=== PATIENT | female | born 1950 | race Caucasian/White ===

== ENCOUNTER 2018-04-17 15:54 | Observation (INO) ==
[2018-04-17] MEDS ORDERED: Acetaminophen 325 MG Tablet PO ONE (16:24)
[2018-04-17] MEDS ORDERED: Morphine Inj 4 MG/ML Vial IV.PUSH ONE (16:26)
--- NOTE | 2018-04-17 16:31 | ED ---
HPI General Chief complaint: Extremity Problem,Nontraumatic Stated complaint: Left leg redness/pain/swelling Time Seen by Provider: 04/17/18 16:18 Source: patient Mode of arrival: wheelchair Limitations: no limitations History of Present Illness HPI narrative: 68-year-old female here for evaluation of worsening left lower extremity pain, swelling, redness. The patient was seen in the emergency department on 04/15/18 for similar symptoms, stating that her symptoms started that day, had a left lower extremity venous duplex that was negative for DVT, discharged home with Keflex which she has been compliant with. Patient reports increasing pain and swelling with increasing area of erythema. She is unsure if she has had a fever. Pain is severe, constant, throbbing, worse with movements and palpation. She is unable to ambulate because of the pain. She denies trauma. Related Data Home Medications Medication Instructions Recorded Confirmed furosemide [Lasix] 20 mg PO DAILY 04/15/18 04/17/18 gabapentin 300 mg PO HS 04/15/18 04/17/18 ropinirole 2 mg PO HS 04/15/18 04/17/18 spironolactone 50 mg PO DAILY 04/15/18 04/17/18 Previous Rx's Medication Instructions Recorded cephalexin [Keflex] 500 mg PO TID 10 Days #30 cap 04/15/18 Allergies Allergy/AdvReac Type Severity Reaction Status Date / Time No Known Allergies Allergy Verified 04/17/18 16:07 Review of Systems ROS: all other systems reviewed are negative PMFSH Social History Social History Substance History: No History of Abuse Second Hand Smoke Exposure: Yes Smoking Status: Current every day smoker Tobacco Type: Cigarettes How Often Do You Have a Drink Containing Alcohol: 4 or more times a week Recent Travel in [facility] within the Last 8 Weeks: No Recent Out of Country Travel within the Last 8 Weeks: No Immunization History Tetanus Immunization: <5 Years Exam Narrative Exam Narrative: GENERAL: Well-developed, well-nourished, comfortable, no apparent distress. SKIN: Left foot, ankle, and distal leg with moderate edema with overlying warmth and erythema and diffuse tenderness, no crepitus, no red streaks, no fluctuance or induration. There is one tiny scab to the posterior aspect of the distal leg, otherwise no open wounds or ulcerations. HEAD: Atraumatic. Normocephalic. EYES: Pupils equal and round. No scleral icterus. No injection or drainage. ENT: Mucous membranes pink and moist. NECK: Trachea midline. No JVD. CARDIOVASCULAR: Regular rate and rhythm. Bilateral dorsalis pedis pulses are brisk and equal. RESPIRATORY: No accessory muscle use. Clear to auscultation. Breath sounds equal bilaterally. GASTROINTESTINAL: Abdomen soft, non-tender, nondistended. MUSCULOSKELETAL: Skin exam as above. Otherwise no obvious deformities. NEUROLOGICAL: Awake and alert. No obvious cranial nerve deficits. Motor grossly within normal limits. Normal speech. PSYCHIATRIC: Appropriate mood and affect; insight and judgment normal. Course Initial Documented Vital Signs Temperature 99.0 F 04/17/18 16:02 Pulse Rate 94 H 04/17/18 16:02 Respiratory Rate 20 04/17/18 16:02 Blood Pressure 152/79 H 04/17/18 16:02 Pulse Oximetry 98 04/17/18 16:02 Last Documented Vital Signs Temperature 98.4 F 04/17/18 20:00 Pulse Rate 64 04/17/18 20:00 Respiratory Rate 16 04/17/18 20:00 Blood Pressure 105/56 L 04/17/18 20:00 Pulse Oximetry 98 04/17/18 20:00 Medical Decision Making [facility] Narrative Medical decision making narrative: Initial vital signs show heart rate 94 with a low-grade temp of 99 F. CBC is remarkable for elevated MCV of 105. CMP is remarkable for sodium of 130. Left ankle x-ray shows moderate soft tissue swelling without bony abnormality. The patient has significant edema with cellulitis to the left distal leg/ankle/ foot. The left lower extremity is neurovascularly intact, and all compartments are supple. This has not responded to outpatient antibiotic therapy with Keflex , and the pain is so severe today that the patient is unable to ambulate because of this. She was given a dose of 1 g of IV vancomycin here in the emergency department and will be admitted for further treatment and evaluation of left lower extremity cellulitis with failed outpatient therapy. Patient has a slightly elevated MCV with a sodium of 1 takes a couple of alcoholic beverages daily, and states that she had a couple of drinks a day to try to help with her pain. She was made aware of all findings and is amenable with plan for admission. Case discussed with hospitalist Dr. José who will admit the patient to his service. Medical Screen Exam Complete: Yes Emergency Medical Condition: Yes Differential Diagnosis Differential Diagnosis: Cellulitis, myositis, osteomyelitis, gout, necrotizing fasciitis less likely Lab Data Result diagrams: 04/17/18 16:30 04/17/18 16:30 Lab Results 04/17/18 04/17/18 04/17/18 Range/Units 16:30 16:30 16:30 CBC w Diff Auto diff final WBC 8.1 (4.0-11.0) th/mm3 RBC 4.03 (4.00-5.30) mil/mm3 Hgb 14.7 (11.6-15.3) gm/dL Hct 42.3 (35.0-46.0) % MCV 105.0 H (80.0-100.0) fL MCH 36.6 H (27.0-34.0) pg MCHC 34.8 (32.0-36.0) % RDW 13.6 (11.6-17.2) % Plt Count 317 (150-450) th/mm3 MPV 7.4 (7.0-11.0) fL Neut % (Auto) 65.4 (16.0-70.0) % Lymph % (Auto) 26.6 (9.0-44.0) % [place] % (Auto) 5.5 (0.0-8.0) % Eos % (Auto) 1.7 (0.0-4.0) % Baso % (Auto) 0.8 (0.0-2.0) % Neut # (Auto) 5.3 (1.8-7.7) th/mm3 Lymph # (Auto) 2.2 (1.0-4.8) th/mm3 [place] # (Auto) 0.4 (0.0-0.9) th/mm3 Eos # (Auto) 0.1 (0.0-0.4) th/mm3 Baso # (Auto) 0.1 (0.0-0.2) th/mm3 WBC Differential . Differential Comment . PT 9.7 L (9.8-11.6) sec INR 1.0 Ratio APTT 27.4 (23.4-31.7) sec Sodium 130 L (136-145) meq/L Potassium 3.8 (3.5-5.1) meq/L Chloride 98 (98-107) meq/L Carbon Dioxide 25.4 (21.0-32.0) meq/L Anion Gap 7 (5-15) meq/L BUN 9 (7-18) mg/dL Creatinine 0.80 (0.50-1.00) mg/dL Estimated GFR 72 L (>89) mL/min Random Glucose 90 (74-106) mg/dL Lactic Acid (0.4-2.0) mmol/L Uric Acid (2.6-6.0) mg/dl Calcium 8.4 L (8.5-10.1) mg/dL Magnesium 2.0 (1.5-2.5) mg/dL Total Bilirubin 0.4 (0.2-1.0) mg/dL AST 18 (15-37) U/L ALT 19 (10-53) U/L Alkaline Phosphatase 82 (45-117) U/L Total Protein 7.1 (6.4-8.2) g/dL Albumin 3.2 L (3.4-5.0) g/dL 04/17/18 04/17/18 Range/Units 16:30 16:35 CBC w Diff WBC (4.0-11.0) th/mm3 RBC (4.00-5.30) mil/mm3 Hgb (11.6-15.3) gm/dL Hct (35.0-46.0) % MCV (80.0-100.0) fL MCH (27.0-34.0) pg MCHC (32.0-36.0) % RDW (11.6-17.2) % Plt Count (150-450) th/mm3 MPV (7.0-11.0) fL Neut % (Auto) (16.0-70.0) % Lymph % (Auto) (9.0-44.0) % [place] % (Auto) (0.0-8.0) % Eos % (Auto) (0.0-4.0) % Baso % (Auto) (0.0-2.0) % Neut # (Auto) (1.8-7.7) th/mm3 Lymph # (Auto) (1.0-4.8) th/mm3 [place] # (Auto) (0.0-0.9) th/mm3 Eos # (Auto) (0.0-0.4) th/mm3 Baso # (Auto) (0.0-0.2) th/mm3 WBC Differential Differential Comment PT (9.8-11.6) sec INR Ratio APTT (23.4-31.7) sec Sodium (136-145) meq/L Potassium (3.5-5.1) meq/L Chloride (98-107) meq/L Carbon Dioxide (21.0-32.0) meq/L Anion Gap (5-15) meq/L BUN (7-18) mg/dL Creatinine (0.50-1.00) mg/dL Estimated GFR (>89) mL/min Random Glucose (74-106) mg/dL Lactic Acid 1.4 (0.4-2.0) mmol/L Uric Acid 4.6 (2.6-6.0) mg/dl Calcium (8.5-10.1) mg/dL Magnesium (1.5-2.5) mg/dL Total Bilirubin (0.2-1.0) mg/dL AST (15-37) U/L ALT (10-53) U/L Alkaline Phosphatase (45-117) U/L Total Protein (6.4-8.2) g/dL Albumin (3.4-5.0) g/dL Imaging Data Radiologist's impression: Ankle X-Ray 04/17/18 16:24 CONCLUSION: 1. No acute fracture or dislocation. 2. Diffuse soft tissue swelling of the left ankle. Discharge Plan Discharge Disposition Patient Disposition: 30 Still Patient Discharge Condition Condition: Stable Discharge Details Diagnosis: Cellulitis of left leg Physicians Team ED Provider: Alec Durham Primary Care Provider: UNKNOWN, Attending Provider: Aleja José Discharge Interventions Interventions: ED Discharge Assessment Last Done: 04/17/18 19:20 Status ED Status: Left Department Discharge Information Discharge Date/Time: 04/17/18 19:55
[2018-04-17 16:40] LABS: Baso # (Auto) 0.1 th/mm3 (0.0-0.2); Baso % (Auto) 0.8 % (0.0-2.0); Eos # (Auto) 0.1 th/mm3 (0.0-0.4); Eos % (Auto) 1.7 % (0.0-4.0); Hematocrit 42.3 % (35.0-46.0); Hemoglobin 14.7 gm/dL (11.6-15.3); Lymph # (Auto) 2.2 th/mm3 (1.0-4.8); Lymph % (Auto) 26.6 % (9.0-44.0); Mean Corpuscular HGB Conc 34.8 % (32.0-36.0); Mean Corpuscular Hemoglobin 36.6 pg (27.0-34.0); Mean Platelet Volume 7.4 fL (7.0-11.0); Mono # (Auto) 0.4 th/mm3 (0.0-0.9); Mono % (Auto) 5.5 % (0.0-8.0); Neut # (Auto) 5.3 th/mm3 (1.8-7.7); Neut % (Auto) 65.4 % (16.0-70.0); Platelet Count 317 th/mm3 (150-450); Red Blood Count 4.03 mil/mm3 (4.00-5.30); Red Cell Distribution Width 13.6 % (11.6-17.2); White Blood Count 8.1 th/mm3 (4.0-11.0)
[2018-04-17 16:49] LABS: Chloride 98 meq/L (98-107); Potassium 3.8 meq/L (3.5-5.1); Sodium 130 meq/L (136-145)
[2018-04-17 16:52] LABS: Calcium 8.4 mg/dL (8.5-10.1)
[2018-04-17 16:53] LABS: Albumin 3.2 g/dL (3.4-5.0); Anion Gap 7 meq/L (5-15); Carbon Dioxide 25.4 meq/L (21.0-32.0); Glucose,Random 90 mg/dL (74-106)
[2018-04-17 16:55] LABS: Activated Partial Thrombo Time 27.4 sec (23.4-31.7); Blood Urea Nitrogen 9 mg/dL (7-18); Prothrombin Time 9.7 sec (9.8-11.6)
[2018-04-17 16:56] LABS: Alanine Aminotransferase 19 U/L (10-53); Aspartate Aminotransferase 18 U/L (15-37)
[2018-04-17 16:58] LABS: Total Protein 7.1 g/dL (6.4-8.2)
[2018-04-17 16:59] LABS: Alkaline Phosphatase 82 U/L (45-117); Glomerular Filtration Rate 72 mL/min (>89)
[2018-04-17] MEDS ORDERED: Vancomycin Inj 1,000 MG in Sodium Chlor 0.9% Inj 250 ML IV.SIG SCH (17:00)
--- NOTE | 2018-04-17 17:00 | XR ---
EXAM DATE: 04/17/2018 4:51 PM EST AGE/SEX: 68 years / Female INDICATIONS: Pain and inflammation to left ankle. No known injury. CLINICAL DATA: This is the patient's initial encounter. Patient reports that signs and symptoms have been present for 3 days and indicates a pain score of 8/10. MEDICAL/SURGICAL HISTORY: None. None. COMPARISON: No prior exams available for comparison. FINDINGS: Bony structures are intact and in normal alignment. Joints are intact without dislocation or signifi cant arthropathy. Osseous density is normal. Diffuse soft tissue swelling of the left ankle is noted . No radiopaque foreign bodies seen. CONCLUSION: 1. No acute fracture or dislocation. 2. Diffuse soft tissue swelling of the left ankle. Electronically signed by: Wilman Phillips MD 04/17/2018 4:58 PM EST
[2018-04-17] MEDS ORDERED: Acetaminophen 325 MG Tablet PO PRN (17:33)
[2018-04-17] MEDS ORDERED: Morphine Sulfate Inj 2 MG/ML Vial IV.PUSH PRN (17:34)
[2018-04-17] MEDS: Sod Chloride 0.9% Inj 1,000 ML IV.CONT SCH (18:51)
[2018-04-17] MEDS: Ampicillin/Sulbactam Inj 1,500 MG in Sodium Chloride 0.9% Inj 100 ML IV.SIG SCH ×2 (18:51→23:02)
[2018-04-17] MEDS ORDERED: Ibuprofen 600 MG Tablet PO PRN (19:35)
--- NOTE | 2018-04-17 19:58 | P.HPIM ---
History of Present Illness Primary Care Physician: UNKNOWN History of Present Illness: Patient is a 61-year-old with a history of restless leg syndrome, peripheral neuropathy, and extensive tobacco smoking and etoh history. She says that she drinks 3-5 beers per day that has been on going for nearly 10 yrs. On Monday she noticed that she had some redness and swelling of her medial left ankle. The pain continuously got worse until she was unable to ambulate on it. She denies any fevers or chills. No trauma to the ankle, or recent insect bites. She came into the ed a few days ago and was given keflex without any improvement of her symptoms. An u/s of the lower ext during that time was negative for DVT. She denies any abd pain, no diarrhea, no sob, no chest pain. PMH Restless leg syndrome, peripheral neuropathy Surgical hx none Fam hx non contributory social hx pt admits to 3-5 beers per day for nearly 10 yrs, smoked tobacco 1ppd for nearly 50 yrs. Denies hx of Drug use. Inpatient Certification: I certify that the inpatient services were ordered in accordance with Medicare regulations governing the order. This includes certification that hospital inpatient services are reasonable and necessary and in the case of services not specified as inpatient-only under 42 CFR 419.22(n), that they are appropriately provided as inpatient services in accordance to with the 2-midnight benchmark under 43 CFR 412.3(e) Review of Systems All other systems reviewed negative except as stated in HPI PMFSH - History History Provided By: Patient - Medical History Medical History: Medical History (Last Reviewed 04/17/18 @ 16:12 by Laura Benites RN) CHF (congestive heart failure) H/O: hysterectomy Restless leg syndrome - Tobacco History Second Hand Smoke Exposure: Yes Tobacco Use In Past 30 Days: Yes Smoking Status: Current every day smoker Tobacco Type: Cigarettes - Alcohol History How Often Do You Have a Drink Containing Alcohol: 2 to 4 times a month - Substance Use History Substance History: No History of Abuse - Travel History Recent Travel in the [place] Within the Last 8 Weeks: No Recent Travel Out of the Country Within the Last 8 Weeks: No - Immunization History Tetanus Immunization: <5 Years Medications and Allergies Active Medications: Active Medications Gabapentin (Neurontin) 300 mg PO HS MISHA Vancomycin HCl 1,000 mg/ (Sodium Chloride) 250 mls @ 250 mls/hr IV.SIG [facility] Last Infusion: 04/17/18 18:45 Dose: Infused Vancomycin HCl 1,000 mg/ (Sodium Chloride) 250 mls @ 250 mls/hr IV.SIG Q24H [facility] Ampicillin Sodium/Sulbactam Sodium 1,500 mg/ Sodium Chloride 100 mls @ 200 mls/ hr IV.SIG Q6H [facility] Last Infusion: 04/17/18 19:20 Dose: Infused Sodium Chloride (Ns Inj) 1,000 mls @ 125 mls/hr IV.CONT .Q8H [facility] Last Admin: 04/17/18 18:51 Dose: 125 mls/hr Ibuprofen (Motrin) 600 mg PO Q8H PRN PRN Reason: PAIN 1-10 AND/OR FEVER >101F Ropinirole HCl (Requip) 2 mg PO [facility] Allergies Allergy/AdvReac Type Severity Reaction Status Date / Time No Known Allergies Allergy Verified 04/17/18 16:07 Home Medications Medication Instructions Recorded Confirmed Type furosemide [Lasix] 20 mg PO DAILY 04/15/18 04/17/18 History gabapentin 300 mg PO HS 04/15/18 04/17/18 History ropinirole 2 mg PO HS 04/15/18 04/17/18 History spironolactone 50 mg PO DAILY 04/15/18 04/17/18 History Exam Vital signs: Vital Signs 04/17/18 16:02 04/17/18 17:30 04/17/18 19:12 Temperature 99.0 F Pulse Rate 94 H 71 66 Respiratory Rate 20 18 16 Blood Pressure 152/79 H 123/56 L 112/56 L Pulse Oximetry 98 97 98 Intake & Output 04/17/18 04/17/18 04/18/18 06:59 18:59 06:59 Intake Total 250 / 250 100 / 100 Balance 250 / 250 100 / 100 Weight 63 kg Intake: IV 250 / 250 100 / 100 Unasyn Inj 1,500 MG In NS Inj 100 / 100 100 ML @ 200 mls/hr IV.SIG Q6H [facility] Rx#:[id number] Vancomycin Inj 1,000 MG In NS 250 / 250 Inj 250 ML @ 250 mls/hr IV.SIG [facility] Rx#:[id number] Narrative: General patient complains of pain of the left ankle HEENT extraocular movements are intact, clear oropharyngeal mucosa Cardiovascular S1-S2 audible Respiratory clear to auscultation bilaterally Abdomen soft, nontender, nondistended, normal bowel sounds Extremities Left ankle is erythematous, swollen, limited range of motion of the left ankle Neuro cranial nerves II through XII intact Results - Labs CBC & Chem 7: 04/17/18 16:30 04/17/18 16:30 Labs: Short CBC 04/17/18 Range/Units 16:30 WBC 8.1 (4.0-11.0) th/mm3 Hgb 14.7 (11.6-15.3) gm/dL Hct 42.3 (35.0-46.0) % Plt Count 317 (150-450) th/mm3 BMP 04/17/18 16:30 Sodium 130 L Potassium 3.8 Chloride 98 Carbon Dioxide 25.4 BUN 9 Creatinine 0.80 Calcium 8.4 L Liver Function 04/17/18 Range/Units 16:30 Total Bilirubin 0.4 (0.2-1.0) mg/dL AST 18 (15-37) U/L ALT 19 (10-53) U/L Alkaline Phosphatase 82 (45-117) U/L Albumin 3.2 L (3.4-5.0) g/dL - Imaging Impressions Ankle X-Ray 04/17/18 16:24 CONCLUSION: 1. No acute fracture or dislocation. 2. Diffuse soft tissue swelling of the left ankle. Caprini VTE Risk Assessment Caprini VTE Risk Assessment: Moderate/High Risk (score >= 2) Caprini Risk Assessment Model: Point Value = 1 Point Value = 2 Point Value = 3 Point Value = 5 Age 41-60 Minor surgery BMI > 25 kg/m2 Swollen legs Varicose veins or History of unexplained or recurrent spontaneous Oral contraceptives or hormone replacement Sepsis (< 1 month) Serious lung disease, including pneumonia (< 1 month) Abnormal pulmonary function Acute myocardial infarction Congestive heart failure (< 1 month) History of inflammatory bowel disease Medical patient at bed rest Age 61-74 Arthroscopic surgery Major open surgery (> 45 min) Laparoscopic surgery (> 45 min) Malignancy Confined to bed (> 72 hours) Immobilizing plaster cast Central venous access Age >= 75 History of VTE Family history of VTE Factor V Leiden Prothrombin [id number] Lupus anticoagulant Anticardiolipin antibodies Elevated serum homocysteine Heparin-induced thrombocytopenia Other congenital or acquired thrombophilia Stroke (< 1 month) Elective arthroplasty Hip, pelvis, or leg fracture Acute spinal cord injury (< 1 month) Prophylaxis Regimen: Total Risk Factor Score Risk Level Prophylaxis Regimen 0-1 Low Early ambulation 2 Moderate Order ONE of the following: *Sequential Compression Device (SCD) *Heparin 5000 units SQ BID 3-4 Higher Order ONE of the following medications: *Heparin 5000 units SQ TID *Enoxaparin/Lovenox 40 mg SQ daily (WT < 150 kg, CrCl > 30 mL/min) *Enoxaparin/Lovenox 30 mg SQ daily (WT < 150 kg, CrCl > 10-29 mL/min) *Enoxaparin/Lovenox 30 mg SQ BID (WT < 150 kg, CrCl > 30 mL/min) AND/OR *Sequential Compression Device (SCD) 5 or more Highest Order ONE of the following medications: *Heparin 5000 units SQ TID (Preferred with Epidurals) *Enoxaparin/Lovenox 40 mg SQ daily (WT < 150 kg, CrCl > 30 mL/min) *Enoxaparin/Lovenox 30 mg SQ daily (WT < 150 kg, CrCl > 10-29 mL/min) *Enoxaparin/Lovenox 30 mg SQ BID (WT < 150 kg, CrCl > 30 mL/min) AND *Sequential Compression Device (SCD) Assessment and Plan - Plan Patient is a 61-year-old with a history of restless leg syndrome, peripheral neuropathy, and extensive tobacco smoking and etoh history. She says that she drinks 3-5 beers per day that has been on going for nearly 10 yrs. On Monday she noticed that she had some redness and swelling of her medial left ankle. The pain continuously got worse until she was unable to ambulate on it. She denies any fevers or chills. No trauma to the ankle, or recent insect bites. She came into the ed a few days ago and was given keflex without any improvement of her symptoms. An u/s of the lower ext during that time was negative for DVT. 1. Left lower extremity cellulitis concern for Gout Patient is afebrile, wbc count is normal Patient recently had an u/s of the LLE which was neg for DVT. Has an extensive hx of alcohol use, denies diet heavy with red meat. Uric acid level ordered. Xray shows soft tissue swelling Ortho consulted for evaluation and possible arthrocentesis. Started on IV vancomycin and unasyn. Blood cultures ordered. Ibuprofen for pain control. Patient began to have nausea and vomiting with morphine. 2. Restless leg syndrome Continue Ropinirole 3. Peripheral neuropathy Continue gabapentin 4. Tobacco/Etoh abuse Patient was advised to quit smoking and stop drinking. Observe for signs of withdrawal. Patient says she wants to stop smoking. Nicotine patch. Lovenox for dvt prophylaxis.
[2018-04-17] MEDS: Ibuprofen 600 MG Tablet PO ONE ×2 (21:22→21:37)
[2018-04-17] MEDS: Gabapentin 300 MG Capsule PO SCH (21:22)
[2018-04-18] MEDS: Sod Chloride 0.9% Inj 1,000 ML IV.CONT SCH ×3 (02:05→18:25)
[2018-04-18] MEDS: Ampicillin/Sulbactam Inj 1,500 MG in Sodium Chloride 0.9% Inj 100 ML IV.SIG SCH ×3 (05:26→18:36)
[2018-04-18 06:16] LABS: Baso % (Auto) 0.6 % (0.0-2.0); Eos # (Auto) 0.1 th/mm3 (0.0-0.4); Eos % (Auto) 0.9 % (0.0-4.0); Hematocrit 41.1 % (35.0-46.0); Lymph # (Auto) 2.1 th/mm3 (1.0-4.8); Lymph % (Auto) 29.5 % (9.0-44.0); Mean Corpuscular Hemoglobin 36.6 pg (27.0-34.0); Mean Corpuscular Volume 107.8 fL (80.0-100.0); Mean Platelet Volume 7.5 fL (7.0-11.0); Mono # (Auto) 0.5 th/mm3 (0.0-0.9); Neut # (Auto) 4.4 th/mm3 (1.8-7.7); Platelet Count 299 th/mm3 (150-450); Red Blood Count 3.81 mil/mm3 (4.00-5.30); Red Cell Distribution Width 12.7 % (11.6-17.2); White Blood Count 7.1 th/mm3 (4.0-11.0)
[2018-04-18 06:25] LABS: Potassium 4.2 meq/L (3.5-5.1)
[2018-04-18 06:30] LABS: Carbon Dioxide 25.5 meq/L (21.0-32.0); Magnesium 2.2 mg/dL (1.5-2.5)
[2018-04-18] MEDS: Enoxaparin Inj 40 MG/0.4 ML Syringe SQ SCH (09:09)
[2018-04-18] MEDS: Vancomycin Inj 1,000 MG in Sodium Chlor 0.9% Inj 250 ML IV.SIG SCH (09:09)
[2018-04-18 10:14] LABS: Uric Acid 3.9 mg/dl (2.6-6.0)
[2018-04-18] MEDS ORDERED: Gadobutrol PF 2 MMOL/2 ML Vial (for RAD) IV.SIG ONE (10:15)
--- NOTE | 2018-04-18 12:04 | MR ---
EXAM DATE: 04/18/2018 10:30 AM EST AGE/SEX: 68 years / Female INDICATIONS: . Cellulitis. CLINICAL DATA: This is the patient's initial encounter. Patient reports that signs and symptoms have been present for 4 - 6 days and indicates a pain score of 4/10. MEDICAL/SURGICAL HISTORY: None. Hysterectomy. COMPARISON: No prior exams available for comparison. TECHNIQUE: Multiplanar, multisequence MRI examination was performed with contrast and after the intr avenous administration of 6 ml Gadavist (gadobutrol) contrast as a single exam dose. FINDINGS: Bones: The osseous structures are in normal alignment. No evidence of fracture or bony edema. Joint Spaces: No joint effusion or loose bodies are seen. The articular cartilage is intact. Tendons: The posteromedial tendons (tibialis posterior, flexor digitorum and flexor hallucis longus) are intact. The peroneal tendons are intact. The anterior tendons (tibialis anterior, extensor destin lucis longus and extensor digitorum) are intact. The Achilles tendon is intact. Ligaments: The lateral and medial ligament complexes are intact. Other: The plantar aponeurosis is grossly unremarkable. The structures in the tarsal tunnel are int act. Soft Tissues: Diffuse swelling and enhancement in the subcutaneous fat without drainable fluid colle ction or visible abscess. Post Contrast: There are no abnormal areas of enhancement in the marrow, muscle or soft tissues on i mages obtained after intravenous administration of gadolinium. CONCLUSION: 1. Marked soft tissue swelling presumably cellulitis. I don't see any deep muscular collections or b kellie edema to conservative for deep infection Electronically signed by: Mc Robles MD 04/18/2018 12:03 PM EST
--- NOTE | 2018-04-18 12:35 | ECG ---
Date Performed: 04/17/2018 Time Performed: 16:36:34 PTAGE: 68 years EKG: Sinus rhythm INCOMPLETE RIGHT BUNDLE BRANCH BLOCK BORDERLINE ECG PREVIOUS TRACING : 10/29/2011 19.56 DOCTOR: Mc Valenzuela Interpretating Date/Time 04/18/2018 12:33:23
--- NOTE | 2018-04-18 14:18 | P.PNIM ---
Subjective Interval history: Patient complains of pain in the left ankle. Otherwise she does not have any other complaints. Physical Exam Vital signs: Vital Signs 04/17/18 16:02 04/17/18 17:30 04/17/18 19:12 Temperature 99.0 F Pulse Rate 94 H 71 66 Respiratory Rate 20 18 16 Blood Pressure 152/79 H 123/56 L 112/56 L Pulse Oximetry 98 97 98 04/17/18 20:00 04/18/18 00:00 04/18/18 08:00 Temperature 98.4 F 96.1 F L 98.2 F Pulse Rate 64 66 63 Respiratory Rate 16 16 18 Blood Pressure 105/56 L 90/50 L 117/60 Pulse Oximetry 98 98 94 L 04/18/18 12:00 Temperature 97.0 F L Pulse Rate 63 Respiratory Rate 20 Blood Pressure 117/56 L Pulse Oximetry 96 Intake & Output 04/17/18 04/18/18 04/18/18 18:59 06:59 18:59 Intake Total 250 / 250 1500 / 1500 1000 / 1000 Balance 250 / 250 1500 / 1500 1000 / 1000 Weight 63 kg 63.4 kg Intake: IV 250 / 250 1300 / 1300 1000 / 1000 NS Inj 1,000 ML @ 125 mls/hr IV 1000 / 1000 1000 / 1000 .CONT .Q8H MISHA Rx#:[id number] Unasyn Inj 1,500 MG In NS Inj 300 / 300 100 ML @ 200 mls/hr IV.SIG Q6H MISHA Rx#:[id number] Vancomycin Inj 1,000 MG In NS 250 / 250 Inj 250 ML @ 250 mls/hr IV.SIG EDUCATION REPORTER MISHA Rx#:[id number] Oral 200 / 200 Other: # Voids 2 Weight On Admission 63.4 kg Narrative: General patient complains of pain of the left ankle HEENT extraocular movements are intact, clear oropharyngeal mucosa Cardiovascular S1-S2 audible Respiratory clear to auscultation bilaterally Abdomen soft, nontender, nondistended, normal bowel sounds Extremities Left ankle is erythematous, swollen, limited range of motion of the left ankle Neuro cranial nerves II through XII intact Results - Labs CBC & Chem 7: 04/18/18 05:45 04/18/18 05:45 Laboratory Results - last 24 hr 04/17/18 04/17/18 04/17/18 16:30 16:30 16:30 CBC w Diff Auto diff final WBC 8.1 RBC 4.03 Hgb 14.7 Hct 42.3 MCV 105.0 H MCH 36.6 H MCHC 34.8 RDW 13.6 Plt Count 317 MPV 7.4 Neut % (Auto) 65.4 Lymph % (Auto) 26.6 Toombs % (Auto) 5.5 Eos % (Auto) 1.7 Baso % (Auto) 0.8 Neut # (Auto) 5.3 Lymph # (Auto) 2.2 [place]ombs # (Auto) 0.4 Eos # (Auto) 0.1 Baso # (Auto) 0.1 WBC Differential . Differential Comment . PT 9.7 L INR 1.0 APTT 27.4 Sodium 130 L Potassium 3.8 Chloride 98 Carbon Dioxide 25.4 Anion Gap 7 BUN 9 Creatinine 0.80 Estimated GFR 72 L Random Glucose 90 Lactic Acid Uric Acid Calcium 8.4 L Magnesium 2.0 Total Bilirubin 0.4 AST 18 ALT 19 Alkaline Phosphatase 82 Total Protein 7.1 Albumin 3.2 L 04/17/18 04/17/18 04/18/18 16:30 16:35 05:45 CBC w Diff Auto diff final WBC 7.1 RBC 3.81 L Hgb 14.0 Hct 41.1 MCV 107.8 H MCH 36.6 H MCHC 34.0 RDW 12.7 Plt Count 299 MPV 7.5 Neut % (Auto) 62.0 Lymph % (Auto) 29.5 [place]ombs % (Auto) 7.0 Eos % (Auto) 0.9 Baso % (Auto) 0.6 Neut # (Auto) 4.4 Lymph # (Auto) 2.1 [place]ombs # (Auto) 0.5 Eos # (Auto) 0.1 Baso # (Auto) 0.0 WBC Differential . Differential Comment . PT INR APTT Sodium Potassium Chloride Carbon Dioxide Anion Gap BUN Creatinine Estimated GFR Random Glucose Lactic Acid 1.4 Uric Acid 4.6 Calcium Magnesium Total Bilirubin AST ALT Alkaline Phosphatase Total Protein Albumin 04/18/18 05:45 CBC w Diff WBC RBC Hgb Hct MCV MCH MCHC RDW Plt Count MPV Neut % (Auto) Lymph % (Auto) [place]ombs % (Auto) Eos % (Auto) Baso % (Auto) Neut # (Auto) Lymph # (Auto) [place]ombs # (Auto) Eos # (Auto) Baso # (Auto) WBC Differential Differential Comment PT INR APTT Sodium 137 Potassium 4.2 Chloride 105 Carbon Dioxide 25.5 Anion Gap 7 BUN 8 Creatinine 0.75 Estimated GFR 77 L Random Glucose 91 Lactic Acid Uric Acid 3.9 Calcium 8.0 L Magnesium 2.2 Total Bilirubin AST ALT Alkaline Phosphatase Total Protein Albumin Microbiology 04/17/18 16:30 Blood - Peripheral Aerobic Blood Culture - Preliminary No growth in 1 day 04/17/18 16:30 Blood - Peripheral Anaerobic Blood Culture - Preliminary No growth in 1 day 04/17/18 16:35 Blood - Peripheral Aerobic Blood Culture - Preliminary No growth in 1 day 04/17/18 16:35 Blood - Peripheral Anaerobic Blood Culture - Preliminary No growth in 1 day - Imaging Impressions Ankle X-Ray 04/17/18 16:24 CONCLUSION: 1. No acute fracture or dislocation. 2. Diffuse soft tissue swelling of the left ankle. Ankle MRI 04/18/18 07:16 CONCLUSION: 1. Marked soft tissue swelling presumably cellulitis. I don't see any deep muscular collections or bony edema to conservative for deep infection Assessment and Plan - Plan Patient is a 61-year-old with a history of restless leg syndrome, peripheral neuropathy, and extensive tobacco smoking and etoh history. She says that she drinks 3-5 beers per day that has been on going for nearly 10 yrs. On Monday she noticed that she had some redness and swelling of her medial left ankle. The pain continuously got worse until she was unable to ambulate on it. She denies any fevers or chills. No trauma to the ankle, or recent insect bites. She came into the ed a few days ago and was given keflex without any improvement of her symptoms. An u/s of the lower ext during that time was negative for DVT. 1. Left lower extremity cellulitis concern for Gout Patient is afebrile, wbc count is normal Patient recently had an u/s of the LLE which was neg for DVT. Xray shows soft tissue swelling MRI of the left ankle shows soft tissue swelling, otherwise no other significant findings. Uric acid level within normal limits. Patient still has a significant amount of swelling of the left lower extremity. We will continue IV vancomycin and unasyn. Blood cultures ordered. Ibuprofen for pain control. 2. Restless leg syndrome Continue Ropinirole 3. Peripheral neuropathy Continue gabapentin 4. Tobacco/Etoh abuse Patient was advised to quit smoking and stop drinking. Observe for signs of withdrawal. Patient says she wants to stop smoking. Nicotine patch. Lovenox for dvt prophylaxis.
--- NOTE | 2018-04-18 14:29 | MB ---
cc: Chema Silva [facility] DATE: 04/18/2018 CHIEF COMPLAINT: Left foot and ankle pain. HISTORY OF PRESENT ILLNESS: This is a 61-year-old female with a history of restless leg syndrome, peripheral neuropathy, dyslipidemia, and daily tobacco and alcohol use. The patient states that she drinks 3-5 beers a day and smokes nearly 1 pack of cigarettes daily. The patient states that 3 days ago she began having some pain to the left ankle and foot, which came on rather quickly. The patient reports coming to the hospital and being evaluated. The patient was tested for DVT, which was ruled out. The patient states she was diagnosed with cellulitis and placed on Keflex antibiotics by mouth. The patient states that since this time, she has taken the antibiotics consistently; however, they have been ineffective. The patient reports her symptoms have worsened over the last several days. The patient denies any fevers or chills. The patient has no trauma to the ankle or any recent wounds or insect bites. The patient denies any prior history with the left ankle and foot. Initially, the patient states her pain was severe and that she was unable to even touch the skin. The patient states that with IV antibiotics and pain medication, this has improved. Currently, the patient is able to move the ankle and foot a small amount and is able to tolerate touching the foot and ankle. REVIEW OF SYSTEMS: Negative x12 except for what is stated in the HPI. PAST MEDICAL HISTORY: Dyslipidemia, neuropathy, congestive heart failure, and restless leg syndrome. PAST SURGICAL HISTORY: Includes hysterectomy, cataract surgery, and eye surgery for reconstruction. FAMILY HISTORY: The patient's mother of natural causes at an old age. The patient's father of a heart attack in his 40s. SOCIAL HISTORY: The patient admits to drinking 3-5 beers daily x10 years. The patient smokes 1 pack of cigarettes daily for 50 years. The patient denies any drug use. MEDICATIONS: 1. Gabapentin 300 mg by mouth at night. 2. Requip 2 mg by mouth at night. 3. Ibuprofen 600 mg by mouth every 8 hours as needed for pain. ALLERGIES: NO KNOWN ALLERGIES. PHYSICAL EXAMINATION: VITAL SIGNS: Temperature 98.2, heart rate 63, respirations 18, blood pressure 117/60, pulse oximetry is 94% on room air. GENERAL: The patient is alert and oriented x3, resting in bed, in no acute distress. HEAD: Atraumatic and normocephalic. EYES: PERRLA. EARS, NOSE AND THROAT: The patient has no drainage from the ears or nose. The patient has moist mucous membranes. NECK: Supple and trachea is midline. CARDIOVASCULAR: The patient has 2+ pedal and radial pulses bilaterally. RESPIRATORY: The patient has symmetric chest wall rise and nonlabored breathing. ABDOMEN: Soft, nontender and nondistended. EXTREMITIES/MUSCULOSKELETAL: The patient moves the right ankle, bilateral knees, bilateral hips within normal limits with no tenderness to palpation. The patient moves the bilateral hands, wrists, elbows, and shoulders within normal limits with no tenderness to palpation. The patient does have some localized swelling about the bilateral ankles. The right ankle has mild edema. The patient's left ankle has 2+ pitting edema. The patient has some mild erythema about the left ankle and foot. The patient has limited active and passive range of motion of the left ankle. The patient has no tenderness to palpation about the calf. The patient's compartments are soft. NEUROLOGIC: The patient is alert and oriented x3 with no obvious cranial nerve deficits. PSYCHOSOCIAL: The patient has normal mood and affect. LABORATORY DATA: Labs taken on 04/18/2018 show a white blood cell count of 7.1, hemoglobin 14, hematocrit of 41.1, platelets 299. Creatinine is 0.75, glucose is 91. Lactic acid taken on 04/17/2018 is 1.4, uric acid, taken on 04/18/2018 is 3.9. RADIOLOGY: X-ray, 3 views of the left ankle on 04/17/2018 reads as no acute fracture or dislocation. There is diffuse soft tissue swelling of the left ankle. I have reviewed these images and agree with the radiologist's interpretation. MRI of left ankle on 04/18/2018 reads as marked soft tissue swelling, presumably cellulitis. There are no deep muscular collections or bony edema to indicate a deep infection. I have reviewed these images and I agree with the radiologist's interpretation. ASSESSMENT AND PLAN: 1. Left foot and ankle cellulitis. 2. Chronic cigarette smoker and chronic alcohol use. IMPRESSION: MEDICAL DECISION MAKING: I have reviewed the aforementioned images and evaluated the patient today. Based on the diagnostic studies and the patient's clinical exam, I do feel the patient's diagnosis is more of a cellulitis than a deep infection. I do feel that this can be managed conservatively. The patient would benefit from continued IV antibiotics, as she has failed oral antibiotics recently. I did discuss the patient's diagnosis with her in detail today. At this time, I do not foresee any further orthopedic involvement moving forward. We did discuss the patient's use of alcohol and chronic smoking. The patient understands that it is important to try to work on smoking cessation as this can delay healing and increase her risk for infections. I have reviewed the above impression and plan of care with Dr. Doran and he agrees with his documentation. KNE Corrigan , 12:58 PM , 01:15 PM
[2018-04-18] MEDS: Gabapentin 300 MG Capsule PO SCH (20:47)
[2018-04-19] MEDS: Ampicillin/Sulbactam Inj 1,500 MG in Sodium Chloride 0.9% Inj 100 ML IV.SIG SCH ×2 (01:08→06:39)
[2018-04-19] MEDS: Sod Chloride 0.9% Inj 1,000 ML IV.CONT SCH (03:15)
[2018-04-19] MEDS: Enoxaparin Inj 40 MG/0.4 ML Syringe SQ SCH (08:24)
[2018-04-19] MEDS: Vancomycin Inj 1,000 MG in Sodium Chlor 0.9% Inj 250 ML IV.SIG SCH (08:24)
--- NOTE | 2018-04-19 09:10 | P.PNIM ---
Subjective Interval history: Patient does not have any complaints of pain of the left ankle. Her range of motion of the left ankle has improved. Physical Exam Vital signs: Vital Signs 04/18/18 12:00 04/18/18 16:00 04/18/18 20:00 Temperature 97.0 F L 97.7 F 97.7 F Pulse Rate 63 69 63 Respiratory Rate 20 20 20 Blood Pressure 117/56 L 111/61 123/57 L Pulse Oximetry 96 94 L 98 04/19/18 00:00 Temperature 98 F Pulse Rate 73 Respiratory Rate 20 Blood Pressure 114/57 L Pulse Oximetry 95 Intake & Output 04/18/18 04/19/18 04/19/18 18:59 06:59 18:59 Intake Total 1620 / 1620 1810 / 1810 100 / 100 Output Total 2 / 2 Balance 1618 / 1618 1810 / 1810 100 / 100 Weight 66 kg Intake: IV 1000 / 1000 1450 / 1450 100 / 100 NS Inj 1,000 ML @ 125 mls/hr IV 1000 / 1000 1000 / 1000 .CONT .Q8H MISHA Rx#:[id number] Unasyn Inj 1,500 MG In NS Inj 200 / 200 100 / 100 100 ML @ 200 mls/hr IV.SIG Q6H MISHA Rx#:[id number] Vancomycin Inj 1,000 MG In NS 250 / 250 Inj 250 ML @ 250 mls/hr IV.SIG Q24H MISHA Rx#:[id number] Oral 620 / 620 360 / 360 Output: Stool 2 / 2 Other: # Voids 4 5 Narrative: General patient in no acute distress HEENT extraocular movements are intact, clear oropharyngeal mucosa, no JVD Cardiovascular S1-S2 audible, RRR, no murmurs rubs or gallops Respiratory clear to auscultation bilaterally Abdomen soft, nontender, nondistended, normal bowel sounds Extremities mild swelling of the left ankle, range of motion now intact. Erythema improved. Neuro cranial nerves II through XII intact Results - Labs CBC & Chem 7: 04/18/18 05:45 04/18/18 05:45 Laboratory Results - last 24 hr 04/18/18 05:45 Uric Acid 3.9 Microbiology 04/17/18 16:30 Blood - Peripheral Aerobic Blood Culture - Preliminary No growth in 1 day 04/17/18 16:30 Blood - Peripheral Anaerobic Blood Culture - Preliminary No growth in 1 day 04/17/18 16:35 Blood - Peripheral Aerobic Blood Culture - Preliminary No growth in 1 day 04/17/18 16:35 Blood - Peripheral Anaerobic Blood Culture - Preliminary No growth in 1 day - Imaging Impressions Ankle MRI 04/18/18 07:16 CONCLUSION: 1. Marked soft tissue swelling presumably cellulitis. I don't see any deep muscular collections or bony edema to conservative for deep infection Assessment and Plan - Plan Patient is a 61-year-old with a history of restless leg syndrome, peripheral neuropathy, and extensive tobacco smoking and etoh history. She says that she drinks 3-5 beers per day that has been on going for nearly 10 yrs. On Monday she noticed that she had some redness and swelling of her medial left ankle. The pain continuously got worse until she was unable to ambulate on it. She denies any fevers or chills. No trauma to the ankle, or recent insect bites. She came into the ed a few days ago and was given keflex without any improvement of her symptoms. An u/s of the lower ext during that time was negative for DVT. 1. Left lower extremity cellulitis concern for Gout Patient is afebrile, wbc count is normal Blood cultures are negative Patient recently had an u/s of the LLE which was neg for DVT. Xray shows soft tissue swelling MRI of the left ankle shows soft tissue swelling, otherwise no other significant findings. Uric acid level within normal limits. Patient symptoms have significantly improved. Her range of motion is now intact. She is able to ambulate without significant difficulties. Patient will be discharged home today with 7 more days of p.o. doxycycline. 2. Restless leg syndrome Continue Ropinirole 3. Peripheral neuropathy Continue gabapentin 4. Tobacco/Etoh abuse Patient was advised to quit smoking and stop drinking. No signs of withdrawal while in-house.
[2018-04-19 09:37] VITALS: BP 143/84; PULSE 71; RESP 16; TEMP 98.1; O2SAT 98
== END 2018-04-19 10:23 | disposition home or self-care (01) ==
LOC: PHEFT 15:54 → PHEDA 17:26 → INTOOBSV 17:26 → PH3 19:41
PROVIDERS: ADMIT Hospitalist; ATTEND Hospitalist
DX: M25.472 Effusion, left ankle; G25.81 Restless legs syndrome; G62.9 Polyneuropathy, unspecified; F17.210 Nicotine dependence, cigarettes, uncomplicated; L03.116 Cellulitis of left lower limb; F10.10 Alcohol abuse, uncomplicated; M79.605 Pain in left leg; I50.9 Heart failure, unspecified
CPT/HCPCS: 73610; 73723; 80048; 80053; 83605; 83735; 84550; 85025; 85610; 85730; 87040; 90775; 93005; 96361; 96365; 96366; 96367; 96368; 96375; 96376; 99285; A9585; G0378; J0295; J1650; J2270; J2405; J3370; J7030; J7050